=== PATIENT | female | born 1980 | race Native Hawaiian/Other Pacific Islander ===

== ENCOUNTER 2017-04-09 10:57 | Outpatient (CLI) | payer OTHER | END 2017-04-09 12:00 | disposition home or self-care (01) | LOC: RAD 10:57 | DX: M85.88 Other specified disorders of bone density and structure, other site (principal); Z13.820 Encounter for screening for osteoporosis ==

== ENCOUNTER 2018-05-28 11:57 | Outpatient (CLI) | payer OTHER | END 2018-05-28 20:18 | disposition home or self-care (01) | LOC: RAD 11:57 | DX: J40 Bronchitis, not specified as acute or chronic (principal) ==

== ENCOUNTER 2018-07-09 11:09 | Day surgery (SDC) | payer OTHER | END 2018-07-09 15:20 | disposition home or self-care (01) | LOC: OR 11:09 | PROC: 0DB68ZZ Excision of Stomach, Via Natural or Artificial Opening Endoscopic (ICD-10-PCS; principal; 2018-07-09) | PROC: 0DB88ZZ Excision of Small Intestine, Via Natural or Artificial Opening Endoscopic (ICD-10-PCS; 2018-07-09) | PROC: 0D738ZZ Dilation of Lower Esophagus, Via Natural or Artificial Opening Endoscopic (ICD-10-PCS; 2018-07-09) | DX: K21.0 Gastro-esophageal reflux disease with esophagitis (principal); K22.2 Esophageal obstruction; K44.9 Diaphragmatic hernia without obstruction or gangrene; K29.50 Unspecified chronic gastritis without bleeding; B96.81 Helicobacter pylori [H. pylori] as the cause of diseases classified elsewhere; R13.19 Other dysphagia; R10.13 Epigastric pain; R10.10 Upper abdominal pain, unspecified; R11.2 Nausea with vomiting, unspecified; Z87.898 Personal history of other specified conditions ==